=== PATIENT | male | born 1975 | race Caucasian/White ===

== ENCOUNTER 2017-02-17 01:07 | Emergency (ER) | payer SELFPAY ==
[2017-02-17 01:17] VITALS: O2SAT 97
[2017-02-17] MEDS ORDERED: PROPARACAINE 0.5% 15 ML OPHT DROP OP ONE (01:24)
[2017-02-17] MEDS ORDERED: FLUORESCEIN SODIUM 1 MG STRIP OP ONE (01:25)
[2017-02-17] MEDS ORDERED: OFLOXACIN 0.3% SOLN PREPACK OPHT.BTL TAKEHOME ONE (04:16)
[2017-02-17] MEDS ORDERED: IBUPROFEN 200 MG TAB PO ONE (04:20)
--- NOTE | 2017-02-17 04:20 | EDPHY ---
H & P Time Seen by Provider: 02/17/17 03:06 HPI/ROS: HPI Right eye irritation. 41-year-old male by private vehicle. He states that he was at work. 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 Since this afternoon at work he has had a sensation of a foreign body and irritation to his cornea. He denies any changes in vision. He is not a contact lens wear. There is no history of ocular trauma. No other complaints. ROS: Constitutional: No fever, no chills. No weakness. Eyes: No discharge. No changes in vision. As above. Musculoskeletal: No myalgias or arthralgias. Skin: No rashes. Neurological: No headache. Past medical history: Depression. No other past medical history. Social history: Here by himself. Denies smoking. No alcohol. Physical Exam: General Appearance: Alert, no distress. This patient is responding to questions appropriately and in full sentences. This patient appears well- hydrated and well-nourished. Eyes: Pupils equal and round at 3-2 mm bilaterally, no pallor or injection. No lid edema, erythema or injection. Left eye exam: Ac lamp exam with fluorescein staining; no Balta's sign, he has a 1-2 mm corneal abrasion at the 4 o'clock position medial to the limbus, no ulceration. Slit-lamp exam; no hypopyon, no hyphema, anterior chamber is deep and clear, no cell/flare. The upper and lower lids were everted with no gross evidence of foreign body. Neurological: Motor sensory function is grossly intact. Cranial nerves are normal. Gait is normal. Skin: Warm and dry, no rashes. Musculoskeletal: Neck is supple and nontender. No lymphadenopathy. Extremities are symmetrical. All joints range without pain or impingement. Psychiatric: No agitation. No depression. Database: EKG: Imaging: Procedures: Emergency department course: Prior to my evaluation, the patient was treated with proparacaine drops. I discussed my findings on slit-lamp exam and diagnosis of corneal abrasion. He was started on ofloxacin ophthalmic drops in the emergency department. I will send him home with his medication. He does not want narcotic pain medication. I discussed ibuprofen dosing. Plan will be to have him follow up with Dr. Linus Do, advanced manufacturing associate, later this morning for re-evaluation. All of his questions were answered. Return to emergency department precautions discussed. He was discharged in good condition. Differential Diagnosis: The differential diagnosis on this patient includes but is not limited to corneal abrasion. Corneal ulceration, rust ring, corneal foreign body, uveitis , keratitis unlikely. This represents a partial list of diagnoses considered. These considerations are based on history, physical exam, past history, reassessment and diagnostic testing. Smoking Status: Never smoked Constitutional: Initial Vital Signs Temperature (C) 36.5 C 02/17/17 01:13 Heart Rate 70 02/17/17 01:13 Respiratory Rate 18 02/17/17 01:13 O2 Sat (%) 97 02/17/17 01:13 O2 Delivery Mode Room Air Allergies/Adverse Reactions: No Known Allergies Allergy (Unverified 02/17/17 01:12) Home Medications: Medication Instructions Recorded Antidepressent 02/17/17 Medical Decision Making - Data Points Medications Given: Discontinued Medications Fluorescein Sodium ([id number]) 1 mg OP EDNOW ONE Stop: 02/17/17 01:26 Last Admin: 02/17/17 01:37 Dose: 1 mg Proparacaine HCl (Alcaine 0.5%) 2 drops OP EDNOW ONE Stop: 02/17/17 01:25 Last Admin: 02/17/17 01:37 Dose: 2 drops Departure - Departure Disposition: Home, Routine, Self-Care Clinical Impression: Corneal abrasion Condition: Good Instructions: Corneal Abrasion (ED) Additional Instructions: Read and follow provided instructions. Follow-up with Ophthalmology, Dr. Linus Do, later this morning as discussed. Call his office at 9:00 a.m. for appointment time. Explain you were seen at this emergency department and your to be evaluated and managed for a corneal abrasion. Ibuprofen dosin mg every 6 hours with meals for the next 3 days only. Ofloxacin ophthalmic drops: 1-2 drops to right eye every 2-4 hours while awake on days 1 and 2 and then 4 times daily on days 3 through 7 unless otherwise directed by advanced manufacturing associate. Return to the emergency department for worsening pain, decreased vision, swelling in your eye or other serious concerns. Referrals: Linus Do MD [Medical Doctor] - As per Instructions
[2017-02-17 04:46] VITALS: BP 134/75; PULSE 76; RESP 16; TEMP 98.6
[2017-02-17] MEDS ORDERED: OFLOXACIN 0.3% 5ML OPHT DROPS RTEYE SCH (06:00)
== END 2017-02-17 04:46 | disposition home or self-care (01) ==
DX: S05.01XA Injury of conjunctiva and corneal abrasion without foreign body, right eye, initial encounter (principal); X58.XXXA Exposure to other specified factors, initial encounter; Y92.69 Other specified industrial and construction area as the place of occurrence of the external cause; Y99.0 Civilian activity done for income or pay